=== PATIENT | female | born 1985 | race Caucasian/White ===

== ENCOUNTER 2021-10-14 19:41 | Emergency (ER) | payer OTHER ==
[~2021-10-14] VITALS: Ht 157.5 cm; Wt 76.2 kg
[2021-10-14] MEDS ORDERED: MACRODANTIN100 M1 PO (22:39)
== END 2021-10-14 22:49 | disposition home or self-care (01) ==
LOC: ER 19:41
DX: N39.0 Urinary tract infection, site not specified (principal); R18.8 Other ascites